=== PATIENT | female | born 1990 | race Two or more races ===

== ENCOUNTER 2020-12-16 19:21 | Emergency (ER) | payer BC, OTHER ==
[~2020-12-16] VITALS: Ht 160 cm; Wt 59.9 kg
[2020-12-16 21:22] LABS: Urine Amorphous Crystal FEW /hpf (None Seen); Urine Bacteria NONE SEEN /hpf (None Seen); Urine Blood Negative /uL (Negative); Urine Specific Gravity 1.033 (1.001-1.035); Urine WBC 4 /hpf (0 - 5)
[2020-12-17 01:28] VITALS: BP 105/56
== END 2020-12-17 03:41 | disposition home or self-care (01) ==
LOC: ER 19:21
DX: O20.0 Threatened abortion (principal); Z3A.01 Less than 8 weeks gestation of pregnancy
CPT/HCPCS: 36415; 76801; 76817; 81001; 84702; 87086